=== PATIENT | female | born 1995 | race Two or more races ===

== ENCOUNTER → 2019-11-24 12:12 | Outpatient (BNVA) | payer OTHER, SELFPAY | PROVIDERS: Visit Provider Internal Medicine | DX: Z76.89 Persons encountering health services in other specified circumstances (principal) ==

== ENCOUNTER 2022-08-05 15:46 | Emergency (ER) | payer OTHER, SELFPAY ==
[2022-08-05 15:48] VITALS: BP 136/73; PULSE 102; RESP 20; TEMP 36.3; O2SAT 97; BMI 27.5
[2022-08-05 16:10] LABS: MANUAL DIFF FLAG NO
--- NOTE | 2022-08-05 16:10 | ED_ITS ---
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 Patient reports she was in the park petting a rottweiler when it bit her RUE, face and scratched her right leg. Tetanus status unknown. She was able to confirm with the senior nuclear medicine technologist that the dogs's rabies vaccines are UTD Related Data Allergies Allergy/AdvReac Type Severity Reaction Status Date / Time No Known Allergies Allergy Verified 08/05/22 15:48 Review of Systems Review of Systems: Yes all other systems are reviewed and are negative Constitutional: Constitutional: Reports no additional constitutional complaints, Denies body ache(s), Denies chills, Denies fever(s), Denies headache(s) and Denies weakness Eyes: Eyes: Reports no additional eye complaints and Denies change in vision ENT: Reports system reviewed and no additional complaints, except as documented, Denies dizziness, Denies headache(s), Denies nasal congestion, Denies nasal discharge and Denies neck pain Cardiovascular: Cardiovascular: Reports no additional cardiovascular complaints, Denies chest pain, Denies leg edema and Denies dyspnea Respiratory: Respiratory: Reports no additional respiratory complaints, Denies cough and Denies dyspnea Gastrointestinal: Gastrointestinal: Reports no additional gastrointestinal complaints, Denies abdominal pain, Denies diarrhea, Denies nausea and Denies vomiting Genitourinary: Genitourinary: Reports no additional female genitourinary complaints and Denies urinary incontinence Musculoskeletal: Musculoskeletal: Reports no additional musculoskeletal complaints, Denies back pain, Denies arthralgias, Denies joint swelling, Denies neck pain, Denies numbness and Denies tingling Integumentary/Breasts: Skin/Breast: Reports system reviewed and no additional complaints, except as docu, Denies rash and Reports wounds Neurologic: Reports system reviewed and no additional complaints, except as documented, Denies dizziness, Denies headache(s), Denies numbness, Denies tingling and Denies weakness PMFSH Past Medical History Attestation statement: The following information was validated with the patient. Source: old records reviewed and nursing notes reviewed Social History Social History Advance Directives: No Advance Directives Information Provided: No Physical Exam ED Vital Signs: Vital Signs - 24 hr 08/05/22 15:48 08/05/22 16:30 Temperature 97.4 F Pulse Rate 102 H 82 Respiratory Rate 20 Blood Pressure 136/73 117/79 Pulse Oximetry 97 Oxygen Delivery Method Room Air BMI result Body Mass Index 27.5 Const General: cooperative, healthy appearing, comfortable and no acute distress Orientation/consciousness: patient oriented x3 Limitations: no limitations HENMT Other: Multiple abrasions to the face Nose image: 1. Multiple lacerations lower lip through the magui border Face images: 1. 9cm curved laceration with soft tissue deficit down to the SQ tissue 2. +abrasion 3. 5cm laceration present Eyes General: appearance normal, both eyes and all related structures Pupils: Equal, round and reactive pupils present Chest Chest palpation & inspection: normal inspection of the chest Resp Effort & Inspection: normal respiratory effort Cardio Peripheral pulses: Peripheral pulses 2+ throughout Neuro General: patient oriented x3 and moves all extremities Cranial nerves: Yes Equal, round and reactive pupils present Cognition (Neuro): normal cognition Gait exam (Neuro): Normal gait present Extrem Shoulder/upper arm images: 1. +several puncture wounds seen with ecchymosis and swelling Course Course Course Narrative: 1615-I did call [facility] and they are closed to transfers. I did confirm with them that they do not have a plastic surgeon blasting contract man. Reevaluation(s) Reevaluation #1: 1620-I did call [facility] and they are closed to transfers. They do have a plastic surgeon blasting contract man. I explained the above to the patient and the family. I did offer to call [facility] next to see if they would accept the transfer. At this point family has decided they would like to drive her to [facility] and go to the ER there to be seen. Her lacerations were covered. She has family here to drive her. Medications Administered Discontinued Medications Generic Name Dose Route Start Last Admin Trade Name Freq PRN Reason Stop Dose Admin Diphtheria/Tetanus/Acell Pertussis 0.5 ml 08/05/22 16:09 08/05/22 16:31 Diphth,Pertus(Acell),Tet Adult 0.5 Ml Syringe IM 08/05/22 16:10 0.5 ml .ONCE ONE Administration Ketorolac Tromethamine 30 mg 08/05/22 16:09 08/05/22 16:14 Ketorolac Tromethamine 30 Mg/Ml Vial IVPUSH 08/05/22 16:10 30 mg ONCE ONE Administration Lorazepam 1 mg 08/05/22 16:09 08/05/22 16:14 Lorazepam 2 Mg/Ml Vial IVPUSH 08/05/22 16:10 1 mg STAT STA Administration Lorazepam 1 mg 08/05/22 16:28 08/05/22 16:36 Lorazepam 2 Mg/Ml Vial IVPUSH 08/05/22 16:29 1 mg STAT STA Administration Medical Decision Making Medical Decision Making MDM Narrative: 27 yo female here with multiple complex facial lacerations from a dog bite 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 Will call [facility] Differential Diagnosis Differential Diagnoses: The differential diagnosis associated with the presentation includes Dog bites Lab Data 08/05/22 16:03 08/05/22 16:03 Labs: Lab Results 08/05/22 08/05/22 Range/Units 16:03 16:03 WBC 8.2 (4.8-10.8) X10*3/uL RBC 5.07 (4.20-5.50) X10*6/uL Hgb 13.7 (12.0-16.0) g/dl Hct 41.4 (37.0-47.0) % MCV 81.7 (80.0-98.0) fL MCH 27.0 (27.0-33.0) pg MCHC 33.1 (31.0-35.0) g/dl RDW 12.2 (11.0-16.0) % Plt Count 244 (160-400) X10*3/uL MPV 10.4 (9.4-12.3) fL Immature Gran % (Auto) 0.4 (0.0-0.4) % Neut % (Auto) 73.6 H (45-73) % Lymph % (Auto) 17.0 L (20-40) % [place]iscoe % (Auto) 7.1 (2-11) % Eos % (Auto) 1.5 (0-4) % Baso % (Auto) 0.4 (0-2) % Lymph # (Auto) 1.4 (1.2-4.9) X10*3/uL [place]iscoe # (Auto) 0.6 (0.1-1.2) X10*3/uL Eos # (Auto) 0.1 (0.0-0.4) X10*3/uL Baso # (Auto) 0.0 (0.0-0.2) X10*3/uL Abs Immat Gran (auto) 0.03 (0.00-0.03) X10*3/uL Absolute Neuts (auto) 6.1 (2.0-8.3) x10*3/uL Absolute Nucleated RBC 0.000 (0.0-0.012) X10*3/uL Nucleated RBC % (auto) 0.0 (0.0-0.2) /100WBC Sodium 138 (135-145) mmol/L Potassium 3.3 (3.3-5.1) mmol/L Chloride 109 H (96-108) mmol/L Carbon Dioxide 19 L (22-29) mmol/L Anion Gap 13 (12-20) BUN 10 (9-16) mg/dL Creatinine 0.99 (0.5-1.4) mg/dL Estim Creat Clear Calc 84.1 Estimated GFR > 60 Random Glucose 110 (60-115) mg/dL Calcium 9.6 (8.4-10.2) mg/dL Discharge Plan Discharge Clinical Impression: Dog bite Patient Disposition: Home, Self-Care Instructions: Animal Bite (ED) Additional Instructions: We discussed that we do not have a plastic surgeon blasting contract man here at [place]. You want a plastic surgeon to close your lacerations therefore we called nearby hospitals and the closest hospital with a plastic surgeon is [facility] in [place], [place]. Referrals: Physician,Unknown J [Primary Care Provider] - Interventions: ED Discharge Assessment Last Done: 08/05/22 16:58 Discharge Date/Time: 08/05/22 17:14
[2022-08-05] MEDS: Ketorolac Tromethamine 30 MG/ML VIAL IVPUSH (16:14)
[2022-08-05] MEDS: LORazepam 2 MG/ML VIAL 1 MG IVPUSH ×2 (16:14→16:36)
[2022-08-05 16:16] LABS: Basophils Percent Auto 0.4 % (0-2); Eosinophils Absolute Auto 0.1 X10*3/uL (0.0-0.4); Eosinophils Percent Auto 1.5 % (0-4); Hematocrit 41.4 % (37.0-47.0); Hemoglobin 13.7 g/dl (12.0-16.0); Imm Gran Abs Auto 0.03 X10*3/uL (0.00-0.03); Imm Gran Pct Auto 0.4 % (0.0-0.4); Lymphocytes Absolute Auto 1.4 X10*3/uL (1.2-4.9); Mean Corpuscular HGB Conc 33.1 g/dl (31.0-35.0); Mean Corpuscular Volume 81.7 fL (80.0-98.0); Mean Platelet Volume 10.4 fL (9.4-12.3); Monocytes Absolute Auto 0.6 X10*3/uL (0.1-1.2); Monocytes Percent Auto 7.1 % (2-11); Neutrophils Absolute Auto 6.1 x10*3/uL (2.0-8.3); Neutrophils Percent Auto 73.6 % (45-73); Platelet Count 244 X10*3/uL (160-400); Red Blood Count 5.07 X10*6/uL (4.20-5.50); Red Cell Distribution Width 12.2 % (11.0-16.0); White Blood Count 8.2 X10*3/uL (4.8-10.8)
--- NOTE | 2022-08-05 16:25 | PC.NURSE ---
pt wounds were cleansed with NS, mandibular laceration covered with ns soaked nonstick gauze, followed by fluff gauze, abd, kerlix and tape. right bicep puncture wounds cleansed with NS followed by non-stick and kerlix and tape. facial lacerations cleasned with ns. applied ice over forehead per pt request. tdap updated
[2022-08-05 16:30] VITALS: BP 117/79; PULSE 82
[2022-08-05] MEDS: Diphth,Pertus(ACell),Tet Adult 0.5 ML SYRINGE IM (16:31)
[2022-08-05 16:36] LABS: Anion Gap 13 (12-20); Blood Urea Nitrogen 10 mg/dL (9-16); Calcium 9.6 mg/dL (8.4-10.2); Carbon Dioxide 19 mmol/L (22-29); Chloride 109 mmol/L (96-108); Creatinine Clr Calc Pharmacy 84.1; Estimated Glomerular Filt Rate > 60; Glucose Random 110 mg/dL (60-115); Potassium 3.3 mmol/L (3.3-5.1); Sodium 138 mmol/L (135-145)
--- NOTE | 2022-08-05 17:12 | PC.NURSE ---
pt lip lacerations soiled dressings in place, reappled non stick followed by fluff, followed by kerlix and tape. pt provided with additions wound supplies- d/c'd from [facility] pt will be reporting to [facility] for plastics
--- NOTE | 2022-08-05 17:23 | PC.NURSE ---
bite report faxed to [place] [facility] fax confirmation rec
== END 2022-08-05 17:14 | disposition home or self-care (01) ==
LOC: HO.ED 16:39
PROVIDERS: Emergency Provider Student in an Organized Health Care Education/Training Program
DX: S41.151A Open bite of right upper arm, initial encounter (principal); S01.85XA Open bite of other part of head, initial encounter; S80.811A Abrasion, right lower leg, initial encounter; W54.0XXA Bitten by dog, initial encounter; Y93.89 Activity, other specified; Y92.830 Public park as the place of occurrence of the external cause; Y99.8 Other external cause status
CPT/HCPCS: 36415; 80048; 85025; 90471; 90715; 96374; 96375; 96376; 99283; 99284; J1885; J2060